=== PATIENT | male | born 1995 | race Caucasian/White ===

== ENCOUNTER 2016-11-01 16:09 | Inpatient (IN) | payer OTHER ==
[~2016-11-01] VITALS: Ht 175.3 cm; Wt 72.6 kg
[~2016-11-01 16:09] MED LIST: CLON0.1T PO; GABA600T2 PO; GABA800T2 PO; LEVO750T21 PO; QUET100T PO
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
[2016-11-01] MEDS ORDERED: HYDR-3651 PO (21:46)
[2016-11-01 22:01] LABS: *AMPHETAMINE, URINE NEGATIVE (NEGATIVE); *BARBITURATE, URINE POSITIVE (NEGATIVE); *CANNABINOID, URINE POSITIVE (NEGATIVE); *COCCAINE, URINE NEGATIVE (NEGATIVE); *OPIATE, URINE POSITIVE (NEGATIVE); *PHENCYCLIDINE SCREEN,URINE NEGATIVE (NEGATIVE)
[2016-11-01 22:30] VITALS: BP 113/67
[2016-11-01] MEDS ORDERED: diphenhydrAMINE 50 MG CAPSULE PO PRN (22:45)
[2016-11-01] MEDS ORDERED: DIAZEPAM 10 MG TABLET PO PRN ×2 (22:45)
[2016-11-01] MEDS ORDERED: ONDANSETRON ODT 4 MG TAB.RAPDIS SL PRN (22:45)
[2016-11-01] MEDS ORDERED: DICYCLOMINE HCL 20 MG TABLET PO PRN (22:45)
[2016-11-01] MEDS ORDERED: LORAZEPAM 2 MG/1 ML VIAL IM PRN (22:45)
[2016-11-01] MEDS ORDERED: MAGNESIUM HYDROXIDE 30 ML LIQUID UDC PO PRN (22:45)
[2016-11-01] MEDS ORDERED: ACETAMINOPHEN 325 MG TABLET PO PRN (22:45)
[2016-11-01] MEDS ORDERED: BUPRENORPHINE HCL 2 MG TAB.SUBL SL PRN (22:45)
[2016-11-01] MEDS ORDERED: MIRALAX 17 GM POWD.PACK PO PRN (22:45)
[2016-11-01] MEDS ORDERED: ONDANSETRON 4 MG/2 ML VIAL IM PRN (22:45)
[2016-11-01] MEDS ORDERED: MAG HYDROX/AL HYDROX/SIMETH 30 ML LIQUID UDC PO PRN (22:45)
[2016-11-01] MEDS ORDERED: THIAMINE HCL 200 MG/2 ML VIAL IM ONE (22:45)
[2016-11-01] MEDS ORDERED: DIAZEPAM 5 MG TABLET PO PRN (22:45)
[2016-11-01] MEDS ORDERED: HYDROXYZINE PAMOATE 25 MG CAPSULE PO PRN (22:45)
[2016-11-01] MEDS ORDERED: LOPERAMIDE HCL 2 MG CAPSULE PO PRN ×2 (22:45)
[2016-11-01] MEDS ORDERED: IBUPROFEN 600 MG TABLET PO PRN (22:45)
[2016-11-01] MEDS ORDERED: DIAZEPAM 10 MG TABLET ONE (22:56)
[2016-11-01] MEDS ORDERED: DIAZEPAM 10 MG TABLET PO SCH (23:00)
--- NOTE | 2016-11-01 23:07 | NUR ---
Thiamine Refused: Patient refuses Thiamine IM. Patient educated on risks and benefits but continued to refuse.
[2016-11-02] VITALS (7 sets, daily range): BP systolic 92–111; BP diastolic 44–72
--- NOTE | 2016-11-02 | NUR ---
COWS/CIWA Deferred: Ordered 00:00 COWS and CIWA assessments are deferred for sleep. No s/s of acute distress noted. All safety precautions are in place. Will continue to monitor. Addendum: 11/02/16 at 0329 by ADRIEL MAGAÑA RN Amended: Links added.
[2016-11-02] MEDS ORDERED: QUET200T PO (02:19)
[2016-11-02] MEDS ORDERED: HYDR-3326 PO (02:19)
[2016-11-02] MEDS ORDERED: GABA800T2 PO (02:19)
--- NOTE | 2016-11-02 04:00 | NUR ---
COWS/CIWA Deferred: Ordered 04:00 COWS and CIWA assessments are deferred for sleep. All safety precautions are in place. Will continue to monitor. Addendum: 11/02/16 at 0544 by ADRIEL MAGAÑA RN Amended: Links added.
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
[2016-11-02] MEDS ORDERED: TUBERCULIN,PURIF.PROT.DERIV. 5 TU/0.1 ML TEST ID ONE (09:00)
[2016-11-02] MEDS ORDERED: MULTIVITAMINS,THERAPEUTIC TABLET PO SCH (09:00)
[2016-11-02] MEDS ORDERED: PNEUMOCOCCAL 23-VAL P-SAC VAC 0.5 ML VIAL IM ONE (09:00)
[2016-11-02] MEDS: MULTIVITAMINS,THERAPEUTIC TABLET PO SCH (09:44)
[2016-11-02] MEDS: THIAMINE HCL 100 MG TABLET PO SCH (09:44)
[2016-11-02] MEDS: BUPRENORPHINE HCL 2 MG TAB.SUBL SL SCH ×4 (09:44→20:54)
[2016-11-02] MEDS: DIAZEPAM 10 MG TABLET PO SCH ×4 (09:44→20:54)
[2016-11-02] MEDS: FOLIC ACID 1 MG TABLET PO SCH (09:44)
[2016-11-02] MEDS: NEOMY/BACITRAC/POLYMI OINT 28.35 GM TUBE TOP SCH ×2 (09:45→16:29)
--- NOTE | 2016-11-02 09:46 | NUR ---
TB TEST TO L F/A Client tolerated well.
[2016-11-02] MEDS: GABAPENTIN 400 MG CAPSULE PO SCH ×3 (09:52→20:54)
[2016-11-02 10:07] LABS: BASOPHILS % (AUTO) 0.5 % (0.0-2.0); EOSINOPHILS # (AUTO) 0.3 K/uL (0.0-0.7); EOSINOPHILS % (AUTO) 3.8 % (0.0-7.0); HEMATOCRIT 37.3 % (36.7-47.1); HEMOGLOBIN 12.8 g/dL (12.5-16.3); LYMPHOCYTES # (AUTO) 3.2 K/uL (20.0-40.0); LYMPHOCYTES % (AUTO) 34.9 % (20.5-51.5); MEAN CORPUSCULAR HEMOGLOBIN 30.8 uug (23.8-33.4); MEAN CORPUSCULAR HGB CONC 34 g/dL (32.5-36.3); MEAN CORPUSCULAR VOLUME 89.6 fL (73.0-96.2); MONOCYTES # (AUTO) 1.1 K/uL (2.0-10.0); MONOCYTES % (AUTO) 11.7 % (0.0-11.0); NEUTROPHILS # (AUTO) 4.6 K/uL (1.8-8.9); NEUTROPHILS % (AUTO) 49.1 % (38.5-71.5); PLATELET COUNT (AUTO) 377 K/uL (152-348); RED BLOOD CELL COUNT(AUTO) 4.16 MIL/uL (4.06-5.63); RED CELL DISTRIBUTION WIDTH 12.3 % (12.1-16.2); WHITE BLOOD COUNT (AUTO) 9.2 K/uL (3.6-10.2)
[2016-11-02 10:17] LABS: ETHANOL < 3 MG/DL (0-0)
[2016-11-02 10:19] LABS: ALANINE AMINOTRANSFERASE 44 U/L (16-63); ALBUMIN 3.2 g/dL (3.4-5.0); ALKALINE PHOSPHATASE 93 U/L (50-136); ASPARTATE AMINOTRANSFERASE 33 U/L (15-37); BILIRUBIN,TOTAL 0.4 mg/dL (0.2-1.0); CALCIUM 8.9 mg/dL (8.5-10.1); CARBON DIOXIDE 29 mmol/L (21-32); CHLORIDE 105 mmol/L (98-107); CREATININE 0.9 mg/dL (0.6-1.3); GFR 105 mL/min (>60); GLUCOSE 91 mg/dL (74-106); MAGNESIUM 2.1 mg/dL (1.8-2.4); POTASSIUM 4.4 mmol/L (3.5-5.1); SODIUM SERUM 139 mmol/L (136-145); TOTAL PROTEIN, SERUM 7.4 g/dL (6.4-8.2); UREA NITROGEN, BLOOD 11 mg/dL (7-18)
[2016-11-02 10:30] LABS: THYROID STIMULATING HORMONE 2.802 mIU/mL (0.358-3.740)
[2016-11-02 10:40] LABS: HIV-1 p24 ANTIGEN NON REACTIVE (NONREACTIVE); HIV-1/2 ANTIBODY NON REACTIVE (NONREACTIVE)
[2016-11-02] MEDS: KETOROLAC TROMETHAMINE 30 MG INJ IM PRN ×2 (12:22→18:19)
--- NOTE | 2016-11-02 12:22 | NUR ---
PRN TORADOL 30MG INJ Client reports pain on R hand, throbbing, he appears irritable and making facial grimace. PRN Toradol 30mg Inj IM to Left Deltoid, will continue to monitor. Call light within reach.
--- NOTE | 2016-11-02 13:22 | NUR ---
Reassessment PRN TORADOL 30MG INJ Client reports pain relief from 8/10 to 1/10, but tolerable. Call light within reach.
--- NOTE | 2016-11-02 18:19 | NUR ---
PRN TORADOL 30MG INJ Client reports pain 8/10 on R hand, throbbing, he presents irritable, guarding site. PRN Toradol 30mg Inj IM to Left Deltoid, will continue to monitor. Call light within reach.
--- NOTE | 2016-11-02 19:19 | NUR ---
Reassessment PRN TORADOL 30MG INJ Client reports pain relief from 8/10 to 1/10, but tolerable. Call light within reach.
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
[2016-11-02] MEDS: QUETIAPINE FUMARATE 100 MG TABLET PO SCH (20:54)
--- NOTE | 2016-11-02 20:55 | NUR ---
PRN Tylenol: Patient complains of 7/10 pain in right arm. Administered Tylenol 650mg PO as ordered. Will continue to monitor.
--- NOTE | 2016-11-02 22:00 | NUR ---
PRN Tylenol Reassessment: Pt states that the pain in his right arm has decreased from 7/10 to 4/10 and is now manageable. PRN Tylenol effective. Will continue to monitor.
[2016-11-03] VITALS: BP 118/64
--- NOTE | 2016-11-03 | NUR ---
COWS/CIWA Deferred: COWS and CIWA assessments are deferred for sleep. No s/s of acute distress noted. All safety precautions are in place. Will continue to monitor. Addendum: 11/03/16 at 0406 by ADRIEL MAGAÑA RN Amended: Links added.
[2016-11-03] MEDS: KETOROLAC TROMETHAMINE 30 MG INJ IM PRN ×3 (00:25→16:48)
--- NOTE | 2016-11-03 00:25 | NUR ---
PRN Toradol: Patient complains of severe pain in right arm. Patient rates pain 9/10. Administered PRN Toradol 30mg IM in right deltoid. Patient tolerated well. Will continue to monitor.
--- NOTE | 2016-11-03 01:30 | NUR ---
PRN Reassessment: Patient reports pain in right arm has decreased to 3/10. PRN Toradol 30mg IM effective. Will continue to monitor.
[2016-11-03 04:00] VITALS: BP 96/47
--- NOTE | 2016-11-03 04:00 | NUR ---
COWS and CIWA Deferred: COWS and CIWA assessments are deferred while patient sleeps. All safety precautions are in place. Will continue to monitor. Addendum: 11/03/16 at 0444 by ADRIEL MAGAÑA RN Amended: Links added.
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
[2016-11-03] MEDS: DIAZEPAM 10 MG TABLET PO SCH ×3 (09:25→20:47)
[2016-11-03] MEDS: GABAPENTIN 400 MG CAPSULE PO SCH (09:25)
[2016-11-03] MEDS: MULTIVITAMINS,THERAPEUTIC TABLET PO SCH (09:25)
[2016-11-03] MEDS: THIAMINE HCL 100 MG TABLET PO SCH (09:25)
[2016-11-03] MEDS: FOLIC ACID 1 MG TABLET PO SCH (09:25)
[2016-11-03] MEDS: BUPRENORPHINE HCL 2 MG TAB.SUBL SL SCH ×3 (09:25→20:47)
[2016-11-03] MEDS: NEOMY/BACITRAC/POLYMI OINT 28.35 GM TUBE TOP SCH ×2 (09:26→16:01)
[2016-11-03 09:30] VITALS: BP 118/68
--- NOTE | 2016-11-03 09:36 | NUR ---
PRN Toradol 30 mg INJ Client complains of severe pain in right arm, pain 9/10. Administered PRN Toradol 30mg IM in right deltoid. Patient tolerated well. Will continue to monitor. Call light within reach.
--- NOTE | 2016-11-03 10:36 | NUR ---
Reassessment PRN TORADOL 30MG INJ Client reports pain relief now 1/10, but tolerable. Call light within reach.
[2016-11-03] MEDS ORDERED: CLONIDINE HCL 0.1 MG TABLET PO ONE (11:45)
[2016-11-03] MEDS ORDERED: DIAZEPAM 10 MG TABLET PO SCH ×2 (12:00)
--- NOTE | 2016-11-03 12:13 | NUR ---
One time dose Clonidine, Valium Client reports chills, diaphoresis, anxiety, irritability, leg restlessness. Clonidine 0.1mg and Valium 10mg PO administered. Will continue to monitor.
[2016-11-03 12:14] VITALS: BP 103/61
[2016-11-03] MEDS ORDERED: DIAZEPAM 10 MG TABLET PO ONE (13:00)
--- NOTE | 2016-11-03 13:13 | NUR ---
Reassessment One time dose Clonidine, Valium Client is in bed, appears calm, He stated "I feel a little bit better." Will continue to monitor.
[2016-11-03 14:06] LABS: HCV AB >11.0 s/co ratio (0.0-0.9); HEPATITIS B CORE AB, IgM Negative (Negative); HEPATITIS B SURFACE AG Negative (Negative)
[2016-11-03] MEDS: DICYCLOMINE HCL 20 MG TABLET PO SCH ×2 (15:56→20:47)
[2016-11-03] MEDS: GABAPENTIN 300 MG CAPSULE PO SCH ×2 (15:56→20:46)
[2016-11-03] MEDS: BACLOFEN 10 MG TABLET PO SCH ×2 (15:56→20:47)
[2016-11-03 16:04] VITALS: BP 107/62
--- NOTE | 2016-11-03 17:48 | NUR ---
Reassessment PRN TORADOL 30MG INJ Client reports pain relief at R hand 0/10. Call light within reach.
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
[2016-11-03 20:16] VITALS: BP 112/61
[2016-11-03] MEDS: QUETIAPINE FUMARATE 100 MG TABLET PO SCH (20:47)
[2016-11-04 00:44] VITALS: BP 108/50
[2016-11-04] MEDS: KETOROLAC TROMETHAMINE 30 MG INJ IM PRN ×3 (04:33→18:51)
--- NOTE | 2016-11-04 04:40 | NUR ---
PRN Toradol Pt c/o Right arm pain 03/17 and requested for PRN Toradol. Medication given and tolerated well. Will reassess within 1 HR. Will continue to monitor.
[2016-11-04 04:44] VITALS: BP 104/54
--- NOTE | 2016-11-04 05:37 | NUR ---
PRN Toradol Reassessment Medication effective. Pt states that pain level reduced to 5/10. No s/s of ASE/distress noted at this time. Respirations even and unlabored. Will continue to monitor.
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
[2016-11-04] MEDS: THIAMINE HCL 100 MG TABLET PO SCH (08:13)
[2016-11-04] MEDS: MULTIVITAMINS,THERAPEUTIC TABLET PO SCH (08:13)
[2016-11-04] MEDS: BACLOFEN 10 MG TABLET PO SCH ×2 (08:13→14:51)
[2016-11-04] MEDS: FOLIC ACID 1 MG TABLET PO SCH (08:13)
[2016-11-04] MEDS: DICYCLOMINE HCL 20 MG TABLET PO SCH ×3 (08:13→20:27)
[2016-11-04] MEDS: GABAPENTIN 300 MG CAPSULE PO SCH ×3 (08:13→20:27)
[2016-11-04] MEDS: DIAZEPAM 5 MG TABLET PO SCH ×4 (08:13→20:27)
[2016-11-04] MEDS: NEOMY/BACITRAC/POLYMI OINT 28.35 GM TUBE TOP SCH ×2 (08:18→16:04)
[2016-11-04 08:20] VITALS: BP 109/61
[2016-11-04] MEDS: CLONIDINE HCL 0.1 MG TABLET PO PRN (08:25)
--- NOTE | 2016-11-04 08:25 | NUR ---
PRN Clonidine 0.1mg Clonidine 0.1mg PO given for anxiety, irritability and chills. Will continue to monitor.
[2016-11-04] MEDS ORDERED: BUPRENORPHINE HCL 2 MG TAB.SUBL SL SCH (09:00)
--- NOTE | 2016-11-04 09:25 | NUR ---
Reassessment PRN Clonidine 0.1mg Client stated, "I feel a little bit better, less anxious, thank you." Clonidine 0.1mg effective.
--- NOTE | 2016-11-04 09:46 | NUR ---
ZERO INDURATION NOTED @ TB TEST SITE ON L F/A.
--- NOTE | 2016-11-04 11:10 | NUR ---
PRN Toradol 30 mg INJ Client complains of severe pain in right arm, pain 8/10. BP 128/62, administered PRN Toradol 30mg IM in L deltoid. Patient tolerated well. Will continue to monitor. Call light within reach.
[2016-11-04 12:00] VITALS: BP 100/61
[2016-11-04] MEDS ORDERED: DIAZEPAM 5 MG TABLET PO ONE (12:00)
--- NOTE | 2016-11-04 12:10 | NUR ---
Reassessment PRN TORADOL 30MG INJ Client reports pain relief now 0/10. Call light within reach.
[2016-11-04] MEDS: BUPRENORPHINE HCL 2 MG TAB.SUBL SL SCH ×3 (15:00→20:28)
--- NOTE | 2016-11-04 15:00 | NUR ---
CLIENT TRIED TO CHEEK MEDICATION, PER DR. SUERO DO NOT ADMINISTER DOSE. CHARGE NURSE MADE AWARE.
[2016-11-04 16:00] VITALS: BP 111/63
--- NOTE | 2016-11-04 18:51 | NUR ---
PRN Toradol 30 mg INJ Client complains of severe pain in right arm, pain 9/10. BP 128/62, administered PRN Toradol 30mg IM in R deltoid. Patient tolerated well. Will continue to monitor. Call light within reach.
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
[2016-11-04 20:00] VITALS: BP 120/67
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
[2016-11-04] MEDS: QUETIAPINE FUMARATE 100 MG TABLET PO SCH (20:27)
--- NOTE | 2016-11-04 22:12 | NUR ---
RN note PRN Vistaril Pt noted to have increasing anxiety. Administered Vistaril 25 mg PO as ordered. Will reassess.
--- NOTE | 2016-11-04 23:15 | NUR ---
RN note reassess Pt verbalized decreased level of anxiety. No SOB nor facial grimacing noted. Will continue to monitor pt.
[2016-11-05] VITALS: BP 108/55
[2016-11-05 04:00] VITALS: BP 112/57
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
[2016-11-05 08:00] VITALS: BP 117/65
[2016-11-05] MEDS: MULTIVITAMINS,THERAPEUTIC TABLET PO SCH (08:33)
[2016-11-05] MEDS: GABAPENTIN 300 MG CAPSULE PO SCH ×3 (08:33→20:06)
[2016-11-05] MEDS: CLONIDINE HCL 0.1 MG TABLET PO PRN ×2 (08:34→20:25)
[2016-11-05] MEDS: THIAMINE HCL 100 MG TABLET PO SCH (08:34)
[2016-11-05] MEDS: BUPRENORPHINE HCL 2 MG TAB.SUBL SL SCH ×3 (08:34→20:09)
[2016-11-05] MEDS: FOLIC ACID 1 MG TABLET PO SCH (08:34)
[2016-11-05] MEDS: DIAZEPAM 5 MG TABLET PO SCH ×3 (08:34→20:09)
[2016-11-05] MEDS: DICYCLOMINE HCL 20 MG TABLET PO SCH ×3 (08:34→20:07)
--- NOTE | 2016-11-05 08:34 | NUR ---
PRN Medication Client complains of pain in right arm, pain 8/10 as well as anxiety pt presented with sweats, agitation and slight tremors administered PRN Toradol 30mg IM in Left deltoid and Clonidine 0.1mg pts BP: 117/65mmHg. Patient tolerated well. Will continue to monitor and provide care..
[2016-11-05] MEDS: NEOMY/BACITRAC/POLYMI OINT 28.35 GM TUBE TOP SCH ×2 (08:35→17:00)
[2016-11-05] MEDS: KETOROLAC TROMETHAMINE 30 MG INJ IM PRN ×2 (08:35→17:29)
--- NOTE | 2016-11-05 09:35 | NUR ---
PRN REASSESSMENT Medication partially effective, pt reported a decrease in pain to 5/10 and stated his anxiety has decreased to a tolerable state. All needs met, all safety measures in place will continue to monitor.
[2016-11-05] MEDS ORDERED: DIAZEPAM 10 MG TABLET PO ONE (11:00)
[2016-11-05] MEDS ORDERED: BUPRENORPHINE HCL 2 MG TAB.SUBL SL ONE (11:00)
[2016-11-05 12:00] VITALS: BP 112/67
[2016-11-05] MEDS ORDERED: HYDROXYZINE PAMOATE 25 MG CAPSULE PO PRN (13:45)
[2016-11-05] MEDS: BACLOFEN 10 MG TABLET PO SCH ×2 (14:38→20:07)
[2016-11-05 16:00] VITALS: BP 126/76
--- NOTE | 2016-11-05 17:29 | NUR ---
PRN Medication Client complains of pain in right arm, pain 6/10 PRN Toradol 30mg IM in Left deltoid administered. Will continue to monitor and provide care.
--- NOTE | 2016-11-05 18:27 | NUR ---
PRN REASSESSMENT Medication effective, pt reported a decrease in pain to 3/10 and stated his anxiety has decreased to a tolerable state. All needs met, all safety measures in place will continue to monitor.
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
[2016-11-05 20:00] VITALS: BP 117/67
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
[2016-11-05] MEDS: QUETIAPINE FUMARATE 100 MG TABLET PO SCH (20:07)
[2016-11-05] MEDS: METHOCARBAMOL 750 MG TABLET PO PRN (20:24)
--- NOTE | 2016-11-05 20:25 | NUR ---
PRN Administration Pt is anxious, agitated, irritable, unable to sit still, skin flushed/clammy. Clonidine 0.1mg PRN administered. Robaxin 750mg PRN administered for body aches. Safety measures in place. Will continue to monitor.
--- NOTE | 2016-11-05 21:25 | NUR ---
PRN Reassessment Upon reassessment, pt reports relief of body aches, pt is resting in bed, watching tv. Needs met, safety measures in place. Will continue to monitor.
[2016-11-06] VITALS: BP 101/56
[2016-11-06] MEDS: KETOROLAC TROMETHAMINE 30 MG INJ IM PRN ×3 (00:19→21:57)
--- NOTE | 2016-11-06 00:19 | NUR ---
PRN Administration 0019 Pt reported severe pain rated 8/10 in right arm, requested relief. Toradol 30mg/1ml injection administered. Safety measures in place. Will continue to monitor.
--- NOTE | 2016-11-06 01:19 | NUR ---
PRN Reassessment Upon reassessment, pt is sleeping, respirations even and unlabored, no s/s of acute distress noted. Safety measures in place. will continue to monitor.
[2016-11-06 04:00] VITALS: BP 108/63
--- NOTE | 2016-11-06 04:00 | NUR ---
Vital Signs BP 108/63, pulse 69, respirations 16, SpO2 97%, temp 97.9, no reports of pain CIWA/COWS deferred d/t pt sleeping, to assess while pt is awake as ordered. Safety measures in place. Will continue to monitor.
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
--- NOTE | 2016-11-06 07:10 | NUR ---
Start of Shift Endorsement received from nightshift nurse. Pt is a 21 y/o male admitted for Xanax, Alcohol, Heroin and Dilaudid dependence. Pt has been placed on a 5 day Ativan and 5 day Subutex taper. Pt received PRN Robaxin, Clonidine and Toradol for withdrawal symptoms. Pt is moderately withdrawing at this time AEB COWS 4, CIWA 6 at midnight. Pt reports Hx of seizures related to benzo withdrawals.PT is alert and oriented x4.Pt is in STABLE condition at this time. Remains compliant with medication and diet regimen. All needs have been met, All safety measures in place per hospital policy. Bed in lowest position, side rails up x2, call-light within reach. Will continue to monitor
[2016-11-06 08:00] VITALS: BP 105/49
[2016-11-06] MEDS: GABAPENTIN 300 MG CAPSULE PO SCH ×3 (08:12→21:46)
[2016-11-06] MEDS: THIAMINE HCL 100 MG TABLET PO SCH (08:12)
[2016-11-06] MEDS: FOLIC ACID 1 MG TABLET PO SCH (08:12)
[2016-11-06] MEDS: BUPRENORPHINE HCL 2 MG TAB.SUBL SL SCH ×2 (08:12→21:46)
[2016-11-06] MEDS: MULTIVITAMINS,THERAPEUTIC TABLET PO SCH (08:13)
[2016-11-06] MEDS: DIAZEPAM 5 MG TABLET PO SCH ×2 (08:13→21:46)
[2016-11-06] MEDS: DICYCLOMINE HCL 20 MG TABLET PO SCH ×3 (08:13→21:46)
[2016-11-06] MEDS: BACLOFEN 10 MG TABLET PO SCH ×3 (08:13→21:46)
[2016-11-06] MEDS: CLONIDINE HCL 0.1 MG TABLET PO PRN (08:24)
[2016-11-06] MEDS: NEOMY/BACITRAC/POLYMI OINT 28.35 GM TUBE TOP SCH ×2 (08:27→17:00)
[2016-11-06 12:00] VITALS: BP 108/58
[2016-11-06] MEDS ORDERED: DIAZEPAM 5 MG TABLET PO ONE ×2 (12:45→13:15)
[2016-11-06] MEDS ORDERED: QUETIAPINE FUMARATE 100 MG TABLET PO ONE (13:00)
[2016-11-06] MEDS ORDERED: QUETIAPINE FUMARATE 25 MG TABLET PO ONE (13:15)
[2016-11-06] MEDS ORDERED: BUPRENORPHINE HCL 2 MG TAB.SUBL SL SCH (15:00)
[2016-11-06] MEDS ORDERED: DIAZEPAM 5 MG TABLET PO SCH (15:00)
--- NOTE | 2016-11-06 15:09 | NUR ---
Therapist encouraged client to attend group.
[2016-11-06 16:00] VITALS: BP 100/49
--- NOTE | 2016-11-06 19:08 | NUR ---
End of Shift Endorsement given to nightshift nurse. Pt is a 21 y/o male admitted for Xanax, Alcohol, Heroin and Dilaudid dependence. Pt has been placed on a 5 day Ativan and 5 day Subutex taper. Pt received one time dose of Valium x2 and a one time dose of Subutex per Dr. Aguilar, Pt's CIWA 13, COWS 12 at the time. Pt also received one time dose of Seroquel 12.5mg. Pt's presents with med seeking behavior and expressed open anger when the medications he wanted were delayed or denied. Educated pt on s/e of medications and encouraged pt to learn alternate methods of coping with anxiety and stress. Pt participated in groups and activities. Pt is moderately withdrawing at this time AEB COWS 4, CIWA 7. Intake: 2350ml, Void x4, BM x1. Pt reports Hx of seizures related to benzo withdrawals.PT is alert and oriented x4.Pt is in STABLE condition at this time. Remains compliant with medication and diet regimen. All needs have been met, All safety measures in place per hospital policy. Bed in lowest position, side rails up x2, call-light within reach. Will continue to monitor
[2016-11-06 20:35] VITALS: BP 112/62
[2016-11-06] MEDS: QUETIAPINE FUMARATE 100 MG TABLET PO SCH (21:46)
--- NOTE | 2016-11-06 21:57 | NUR ---
PRN Toradol Pt c/o Right Arm pain 02/14 and requested for PRN Toradol. Medication given and tolerated well. Will reassess within 1 HR. Will continue to monitor.
--- NOTE | 2016-11-06 22:50 | NUR ---
PRN Toradol Reassessment Medication effective. Pt noted with pain 5/10. No s/s of ASE/distress noted at this time. Respirations even and unlabored. Will continue to monitor.
[2016-11-07 00:19] VITALS: BP 94/40
[2016-11-07 04:17] VITALS: BP 118/51
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
[2016-11-07 08:00] VITALS: BP 114/63
[2016-11-07] MEDS: DICYCLOMINE HCL 20 MG TABLET PO SCH ×3 (08:18→20:28)
[2016-11-07] MEDS: FOLIC ACID 1 MG TABLET PO SCH (08:18)
[2016-11-07] MEDS: BACLOFEN 10 MG TABLET PO SCH ×2 (08:18→14:48)
[2016-11-07] MEDS: QUETIAPINE FUMARATE 25 MG TABLET PO SCH (08:18)
[2016-11-07] MEDS: MULTIVITAMINS,THERAPEUTIC TABLET PO SCH (08:19)
[2016-11-07] MEDS: GABAPENTIN 300 MG CAPSULE PO SCH ×4 (08:19→20:28)
[2016-11-07] MEDS: THIAMINE HCL 100 MG TABLET PO SCH (08:19)
[2016-11-07] MEDS: NEOMY/BACITRAC/POLYMI OINT 28.35 GM TUBE TOP SCH ×2 (08:19→16:21)
[2016-11-07] MEDS ORDERED: BUPRENORPHINE HCL 2 MG TAB.SUBL SL SCH (09:00)
[2016-11-07] MEDS ORDERED: DIAZEPAM 5 MG TABLET PO SCH (09:00)
[2016-11-07 12:00] VITALS: BP 109/57
[2016-11-07 15:03] LABS: *AMPHETAMINE, URINE NEGATIVE (NEGATIVE); *BARBITURATE, URINE NEGATIVE (NEGATIVE); *CANNABINOID, URINE NEGATIVE (NEGATIVE); *COCCAINE, URINE NEGATIVE (NEGATIVE); *OPIATE, URINE NEGATIVE (NEGATIVE); *PHENCYCLIDINE SCREEN,URINE NEGATIVE (NEGATIVE)
[2016-11-07 16:00] VITALS: BP 95/55
[2016-11-07] MEDS ORDERED: KETOROLAC TROMETHAMINE 30 MG INJ IM PRN (16:00)
[2016-11-07] MEDS: METHOCARBAMOL 750 MG TABLET PO PRN (16:19)
--- NOTE | 2016-11-07 16:21 | NUR ---
PRN ROBAXIN/TORADOL Pt c/o Right Arm pain 8/10 and Muscle spasms requested for PRN Toradol/Robaxin. Medication given as ordered and tolerated well. Will continue to monitor.
[2016-11-07] MEDS ORDERED: QUETIAPINE FUMARATE 25 MG TABLET PO PRN (16:30)
--- NOTE | 2016-11-07 16:48 | NUR ---
PRN SEROQUEL Pt c/o anxiety, non pharmacological intervention ineffective. PRN Seroquel 25mg Po 1 tab given as ordered. Will cont to monitor and reassess the pt.
--- NOTE | 2016-11-07 17:21 | NUR ---
TORADOL/ROBAXIN REASSESSMENT Pt reported medications effective. Per pt pain level decreased to 4/10. No s/s of adverse reaction noted no distress noted.
--- NOTE | 2016-11-07 17:48 | NUR ---
REASSESSMENT Pt reported medications effective. Anxiety subside. No s/s of adverse reaction noted no distress noted.
[2016-11-07] MEDS ORDERED: BACLOFEN 10 MG TABLET PO PRN (18:00)
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
[2016-11-07 20:22] VITALS: BP 101/51
[2016-11-07] MEDS: QUETIAPINE FUMARATE 100 MG TABLET PO SCH (20:28)
[2016-11-08 00:14] VITALS: BP 92/55
[2016-11-08 04:35] VITALS: BP 126/71
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
[2016-11-08 08:00] VITALS: BP 123/60
--- NOTE | 2016-11-08 08:00 | NUR ---
Pain assessment Pt reported a pain level of 6/10 in his right wrist to SCHEDULER during routine VS. Pt does not want any pain medication at this time. Will continue to monitor pt. All other needs addressed. Addendum: 11/08/16 at 0840 by SAJAN PAZ RN Amended: Links added.
[2016-11-08] MEDS ORDERED: DICY20TA28 PO (08:48)
[2016-11-08] MEDS ORDERED: Baclofen PO (08:48)
[2016-11-08] MEDS ORDERED: QUET25TA PO (08:48)
[2016-11-08] MEDS ORDERED: Ibuprofen PO (08:48)
[2016-11-08] MEDS ORDERED: HYDR-3895 PO (08:48)
[2016-11-08] MEDS ORDERED: Gabapentin PO (08:48)
[2016-11-08] MEDS: MULTIVITAMINS,THERAPEUTIC TABLET PO SCH (09:15)
[2016-11-08] MEDS: NEOMY/BACITRAC/POLYMI OINT 28.35 GM TUBE TOP SCH (09:15)
[2016-11-08] MEDS: QUETIAPINE FUMARATE 25 MG TABLET PO SCH (09:15)
[2016-11-08] MEDS: GABAPENTIN 300 MG CAPSULE PO SCH (09:15)
[2016-11-08] MEDS: FOLIC ACID 1 MG TABLET PO SCH (09:15)
[2016-11-08] MEDS: DICYCLOMINE HCL 20 MG TABLET PO SCH (09:15)
[2016-11-08] MEDS: THIAMINE HCL 100 MG TABLET PO SCH (09:15)
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
[2016-11-12 06:06] LABS: *AMOBARBITAL Negative (Cutoff=200); *BENZODIAZEPINES Positive (.); *BUTALBITAL Negative (Cutoff=200); *CANNABINOID (THC) Positive (.); *CODEINE Negative (Cutoff=300); *HYDROMORPHONE Positive (.); *NORDIAZEPAM Negative (Cutoff=300); *OPIATES Positive ng/mL (Cutoff=300); *OXAZEPAM Positive (.); *PENTOBARBITAL Negative (Cutoff=200); *PHENOBARBITAL Positive (.); *SECOBARBITAL Negative (Cutoff=200)
== END 2016-11-08 10:00 | disposition other institution (70) | DRG 895 ==
LOC: SRC 20:59
PROVIDERS: ADMIT Internal Medicine; ATTEND Internal Medicine
PROC: HZ2ZZZZ Detoxification Services for Substance Abuse Treatment (ICD-10-PCS; principal; 2016-11-01)
PROC: HZ41ZZZ Group Counseling for Substance Abuse Treatment, Behavioral (ICD-10-PCS; 2016-11-02)
PROC: HZ31ZZZ Individual Counseling for Substance Abuse Treatment, Behavioral (ICD-10-PCS; 2016-11-02)
DX: F11.23 Opioid dependence with withdrawal (principal); F10.239 Alcohol dependence with withdrawal, unspecified; F15.23 Other stimulant dependence with withdrawal; Y90.9 Presence of alcohol in blood, level not specified; Z59.0 Homelessness; S61.401D Unspecified open wound of right hand, subsequent encounter; X95 Assault by other and unspecified firearm and gun discharge; G47.00 Insomnia, unspecified; B19.20 Unspecified viral hepatitis C without hepatic coma; F17.210 Nicotine dependence, cigarettes, uncomplicated; S01.81XD Laceration without foreign body of other part of head, subsequent encounter; Y08.02XD Assault by strike by baseball bat, subsequent encounter; F41.9 Anxiety disorder, unspecified; F13.230 Sedative, hypnotic or anxiolytic dependence with withdrawal, uncomplicated
CPT/HCPCS: 36415; 70030-TC; 80307; 80345; 80346; 80349; 80361; 83735; 84443; 85025; 86592; 86705; 86803; 87340; 87806; 90732; G6040-TC; J1885

== ENCOUNTER 2017-02-11 09:19 | Inpatient (IN) | payer OTHER ==
[~2017-02-11] VITALS: Ht 172.7 cm; Wt 64.4 kg
[~2017-02-11 09:19] MED LIST changes: +Baclofen PO; -CLON0.1T PO; +DICY20TA28 PO; -GABA600T2 PO; -GABA800T2 PO; +Gabapentin PO; +HYDR-3895 PO; +Ibuprofen PO; -LEVO750T21 PO; +QUET25TA PO
[2017-02-11 12:15] VITALS: BP 130/70
--- NOTE | 2017-02-11 12:15 | NUR ---
INTAKE ASSESSMENT Received patient in intake. He is AOX4, stable, and ambulatory. Vital signs WNL. Patient reports NKA. Patient has seizure hx last seizure 1 month ago. Patient did not bring any medication with him. Explained unit protocols and patient verbalized understanding. Will admit patient upon admission to third floor.
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
[2017-02-11] MEDS ORDERED: MIRALAX 17 GM POWD.PACK PO PRN (12:45)
[2017-02-11] MEDS ORDERED: DIAZEPAM 10 MG TABLET PO PRN ×3 (12:45→13:00)
[2017-02-11] MEDS ORDERED: diphenhydrAMINE 50 MG CAPSULE PO PRN (12:45)
[2017-02-11] MEDS ORDERED: IBUPROFEN 600 MG TABLET PO PRN (12:45)
[2017-02-11] MEDS ORDERED: THIAMINE HCL 200 MG/2 ML VIAL IM ONE (12:45)
[2017-02-11] MEDS ORDERED: DICYCLOMINE HCL 20 MG TABLET PO PRN (12:45)
[2017-02-11] MEDS ORDERED: LOPERAMIDE HCL 2 MG CAPSULE PO PRN ×2 (12:45)
[2017-02-11] MEDS ORDERED: DIAZEPAM 5 MG TABLET PO PRN ×2 (12:45→17:00)
[2017-02-11] MEDS ORDERED: LORAZEPAM 2 MG/1 ML VIAL IM PRN (12:45)
[2017-02-11] MEDS ORDERED: MAGNESIUM HYDROXIDE 30 ML LIQUID UDC PO PRN (12:45)
[2017-02-11] MEDS ORDERED: MAG HYDROX/AL HYDROX/SIMETH 30 ML LIQUID UDC PO PRN (12:45)
[2017-02-11] MEDS ORDERED: ONDANSETRON 4 MG/2 ML VIAL IM PRN (12:45)
[2017-02-11] MEDS ORDERED: ONDANSETRON ODT 4 MG TAB.RAPDIS SL PRN (12:45)
[2017-02-11] MEDS ORDERED: GABAPENTIN 300 MG CAPSULE PO SCH (12:45)
[2017-02-11] MEDS ORDERED: ACETAMINOPHEN 325 MG TABLET PO PRN (12:45)
[2017-02-11] MEDS ORDERED: BUPRENORPHINE HCL 2 MG TAB.SUBL SL PRN (13:00)
[2017-02-11 13:19] LABS: *AMPHETAMINE, URINE POSITIVE (NEGATIVE); *BARBITURATE, URINE POSITIVE (NEGATIVE); *CANNABINOID, URINE NEGATIVE (NEGATIVE); *COCCAINE, URINE NEGATIVE (NEGATIVE); *OPIATE, URINE POSITIVE (NEGATIVE); *PHENCYCLIDINE SCREEN,URINE NEGATIVE (NEGATIVE)
[2017-02-11 13:39] LABS: BASOPHILS # (AUTO) 0.1 K/uL (0.0-8.0); BASOPHILS % (AUTO) 0.7 % (0.0-2.0); EOSINOPHILS # (AUTO) 0.2 K/uL (0.0-0.7); EOSINOPHILS % (AUTO) 1.8 % (0.0-7.0); LYMPHOCYTES # (AUTO) 2.5 K/UL (0.8-4.8); LYMPHOCYTES % (AUTO) 19.8 % (20.5-51.5); MEAN CORPUSCULAR HEMOGLOBIN 29.2 UUG (27.0-31.0); MEAN CORPUSCULAR HGB CONC 33 g/dL (32.0-37.0); MEAN CORPUSCULAR VOLUME 87.5 FL (82.0-92.0); MONOCYTES # (AUTO) 0.9 K/UL (0.1-1.30); MONOCYTES % (AUTO) 7.4 % (0.0-11.0); NEUTROPHILS # (AUTO) 8.8 K/UL (1.8-8.9); NEUTROPHILS % (AUTO) 70.3 % (38.5-71.5); PLATELET COUNT (AUTO) 321 K/UL (150-450); RED BLOOD CELL COUNT(AUTO) 4.46 MIL/UL (4.7-6.1); WHITE BLOOD COUNT (AUTO) 12.5 K/UL (4.0-11.2)
[2017-02-11] MEDS: CLONIDINE HCL 0.1 MG TABLET PO PRN (13:42)
--- NOTE | 2017-02-11 13:42 | NUR ---
CLONIDINE REASSESSMENT Pt reported medication effective. Feeling better. Will cont to monitor.
--- NOTE | 2017-02-11 13:42 | NUR ---
PRN CLONIDINE Pt c/o of anxiety, agitation, chills. Administered PRN Clonidine 0.1mg as ordered. Will cont to monitor and reassess.
[2017-02-11] MEDS ORDERED: DIAZEPAM 10 MG TABLET PO ONE ×2 (13:45→16:30)
--- NOTE | 2017-02-11 13:47 | NUR ---
VALIUM x1 DOSE Pt reported increased in anxiety, sweats, tremors, agitation, HR-112, CIWA score noted-16. MD notified New order to give 20mg x1 dose of Valium now. Administered medication as ordered. Will cont to monitor and reassess.
[2017-02-11 13:55] LABS: ALANINE AMINOTRANSFERASE 42 U/L (16-63); ALKALINE PHOSPHATASE 127 U/L (50-136); AMYLASE 28 U/L (25-115); ASPARTATE AMINOTRANSFERASE 44 U/L (15-37); BILIRUBIN,TOTAL 0.5 mg/dL (0.2-1.0); CARBON DIOXIDE 30 mmol/L (21-32); CHLORIDE 100 mmol/L (98-107); CREATININE 0.9 mg/dL (0.6-1.3); ETHANOL < 3 MG/DL (0-0); GLUCOSE 117 mg/dL (74-106); LIPASE 83 U/L (73-393); MAGNESIUM 1.8 mg/dL (1.8-2.4); POTASSIUM 4.2 mmol/L (3.5-5.1); TOTAL PROTEIN, SERUM 8.3 g/dL (6.4-8.2); UREA NITROGEN, BLOOD 10 mg/dL (7-18)
[2017-02-11] MEDS ORDERED: HYDROXYZINE PAMOATE 25 MG CAPSULE PO PRN (14:00)
[2017-02-11] MEDS: GABAPENTIN 400 MG CAPSULE PO SCH ×2 (14:30→20:21)
--- NOTE | 2017-02-11 14:47 | NUR ---
VALIUM REASSESSMENT Pt reported medication effective feeling less agitated, anxious, CIWA score noted 12. Will cont to monitor.
[2017-02-11 16:00] VITALS: BP 128/76
--- NOTE | 2017-02-11 16:38 | NUR ---
VALIUM x1 DOSE Pt reported increased in anxiety, sweats, tremors, agitation, difficulty to sit still. HR-115, CIWA score noted-13. MD notified New order to give 20mg x1 dose of Valium now. Administered medication as ordered. Will cont to monitor and reassess.
[2017-02-11] MEDS ORDERED: GABAPENTIN NEURONTIN PO SCH (17:00)
[2017-02-11] MEDS ORDERED: DIAZEPAM 5 MG TABLET PO SCH ×2 (17:00→21:00)
--- NOTE | 2017-02-11 17:38 | NUR ---
VALIUM REASSESSMENT Pt reported medication effective feeling less agitated, anxious, CIWA score noted 9. Will cont to monitor.
--- NOTE | 2017-02-11 19:07 | NUR ---
START OF SHIFT NOTE: Patient endorsed by day shift nurse in stable condition. Report received. Patient is a 21 year old male admitted to [facility] on 02/11/2017 for medically supervised withdrawal from Benzodiazepines, ETOH, Opioid, and Methamphetamine, continue 5 Day Valium since 02/11/2017 with tolerated well without ASE. Patient remained compliant with treatment, medications and diet regime. Patient reports NKA. Patient is on Full Code, Regular Diet, Fall and Seizures Precautions. PMH: Anxiety, Depression, Seizures Hx "one month ago r/t withdrawal", Insomnia. Substance abuse, Tobacco dependence. Substance Use: ETOH: " Vodka 750mL/d for 5 months and last use 750 ml on 02/10/17 ". Xanax: "10-20 mg PO daily for 5 months with the last use 12 mg on 02/10/17". Heroin IV: 2 grams every day during last 5 months. Last used 2 grams on 02/11/17", Methamphetamine: "0.5g via IV injection every day for 5 years w/ the last use on 02/11/17". Phenobarbital PO: "64.8 mg during last 3 months. Last use on 02/10/17". Smoker of 1 pack per day. He has been to a treatment programs multiple times. Last it was on "[facility]" on in the past, 30 day in pt program w/ DC to [facility], with reported relapse soon after discharge. Upon endorsement, patient is in the room. Assessment done. Patient is alert and oriented x4. Speech is clear and soft. COWS 7, CIWA 9. Patient presented with mild anxiety, agitation, nervousness, diaphoresis, tremors, restlessness, body aches, insomnia and fatigue. Patient denies SI/HI. VSWNL. Respirations unlabored and even. Patient denies SOB and chest pain. Lungs Sounds are clear bilaterally. Bowel Sounds active in all x4 quadrants. PERRLA, brisk capillary refill, right of way appraiser equal and strong. Encourage fluids as tolerated. Encourage to attend activities group. All needs met. Safety measures on place. Call light within reach, bed in lowest position and locked, padded rails up bilaterally rails up bilaterally. Will continue to monitor closely.
--- NOTE | 2017-02-11 19:07 | NUR ---
END OF SHIFT NOTE Endorsed pt to night nurse. Pt is admitted for Opioid/Meth/ETOH/Benzo dependence. Pt presented anxious, agitated, difficulty sit still, Tremors, hot and cold flashes. Pt were given x1 dose of Valium 20mg x2 effective. Patient encouraged to attend group therapies/sessions to learn new coping skills to prevent relapse, patient denies SI/HI. Fall and seizure precautions observed at all times, all needs met and rendered, Safety measures in place. Call light kept within reach. Patient endorsed to shiftman nurse, all pertinent information discussed. Patient endorsed to shiftman nurse in stable condition.
[2017-02-11 20:00] VITALS: BP 117/78
[2017-02-11] MEDS: MAGNESIUM CHLORIDE 64 MG TABLET.SA PO SCH (20:20)
[2017-02-11] MEDS: QUETIAPINE FUMARATE 100 MG TABLET PO SCH (20:21)
[2017-02-11] MEDS ORDERED: QUETIAPINE FUMARATE 100 MG TABLET PO SCH (21:00)
--- NOTE | 2017-02-11 21:41 | NUR ---
PRN VALIUM 20 MG PO ADMINISTRATED Patient reported of increased in anxiety, agitation, nervousness, sweats, tremors, and tachycardia. Patient assessed. HR:111. CIWA score noted-17. MD aware. Patient were given of PRN Valium 20mg for CIWA 17 as ordered. All needs met. Safety measures on place. Call light within reach, bed in lowest position and locked, padded rails up bilaterally rails up bilaterally. Will continue to monitor closely.
--- NOTE | 2017-02-11 22:41 | NUR ---
RE-ASSESSMENT Due to re-assessment, patient reported that feeling less agitated and anxious. CIWA score decreased from 17 to 10. Ordered PRN Valium PO was effective. All needs met. Safety measures on place. Call light within reach, bed in lowest position and locked, padded rails up bilaterally rails up bilaterally. Will continue to monitor closely.
[2017-02-12] VITALS: BP 112/70
[2017-02-12 04:00] VITALS: BP 96/52
--- NOTE | 2017-02-12 06:58 | NUR ---
END OF SHIFT NOTE: Patient endorsed to day shift nurse in stable condition. Report given. Patient is a 21 year old male admitted to [facility] on 02/11/2017 for medically supervised withdrawal from Benzodiazepines, ETOH, Opioid, and Methamphetamine, continue 5 Day Valium since 02/11/2017 with tolerated well without ASE. Patient remained compliant with treatment, medications and diet regime. Patient reports NKA. Patient is on Full Code, Regular Diet, Fall and Seizures Precautions. Last assessment done at 0400: COWS 5, CIWA 5. Patient presented with mild anxiety, agitation, nervousness, diaphoresis, tremors, restlessness, body aches, insomnia and fatigue. Patient denies SI/HI. . During security shift manager patient presented with anxiety, agitation, nervousness, diaphoresis, tremors that can be felt, restless legs, insomnia and fatigue. Patient denies SI/HI. VS at 0400: T: 97.2; BP: 96/52; HR: 56; RR:14; O2 SAT: 98%, pain level "0/10". Respirations unlabored and even. Skin is intact, warm and dry to touch. Encouraged fluids as tolerated. Encourage to attend group activities. Patient were given of PRN Valium 20mg for CIWA 17 as ordered and was effective. Patient remained compliant with treatment, and medications. Patient slept 5 hours 25 min, intake 500 ml, voided x1. All needs met. Safety measures on place. Call light within reach, bed in lowest position and locked, padded rails up bilaterally.
--- NOTE | 2017-02-12 07:40 | NUR ---
START OF SHIFT NOTE Received report from night nurse, 21 year old male admitted for Opioid/Meth/ETOH/Benzo dependence. Pt reported PMH of anxiety, seizure, insomnia. Per endorsement pt received PRN Valium 20mg effective, last COWS-5, CIWA-5, Slept for 4 hours. Received pt asleep responsive to verbal and tactile stimuli. Breathing normal no SOB noted, Skin intact warm and dry tot touch. Safety measures in place. Call light kept within reach. Will cont to monitor.
[2017-02-12 08:00] VITALS: BP 109/66
[2017-02-12] MEDS ORDERED: 5 DAY TAPER VALIUM-SERENITY PROTOCOL PO PRN (09:00)
[2017-02-12] MEDS ORDERED: 5 DAY TAPER BUPRENORPHINE -SERENITY PROTOCOL SL PRN (09:00)
[2017-02-12] MEDS ORDERED: TUBERCULIN,PURIF.PROT.DERIV. 5 TU/0.1 ML TEST ID ONE (09:00)
[2017-02-12] MEDS: MULTIVITAMINS,THERAPEUTIC TABLET PO SCH (09:24)
[2017-02-12] MEDS: DOCUSATE SODIUM 250 MG CAPSULE PO SCH (09:25)
[2017-02-12] MEDS: THIAMINE HCL 100 MG TABLET PO SCH (09:25)
[2017-02-12] MEDS: FOLIC ACID 1 MG TABLET PO SCH (09:25)
[2017-02-12] MEDS: GABAPENTIN 400 MG CAPSULE PO SCH ×3 (09:25→20:46)
[2017-02-12] MEDS: MAGNESIUM CHLORIDE 64 MG TABLET.SA PO SCH ×2 (09:25→20:46)
[2017-02-12] MEDS: BUPRENORPHINE HCL 2 MG TAB.SUBL SL SCH ×4 (09:26→20:45)
[2017-02-12] MEDS: DIAZEPAM 10 MG TABLET PO SCH ×4 (09:26→20:45)
--- NOTE | 2017-02-12 09:55 | NUR ---
CARE ENDORSED All pertinent information given and care endorsed to nurse in charge.
--- NOTE | 2017-02-12 09:56 | NUR ---
Received Patient Executive Casino Host received report on pt and assumed care of pt. Pt is a 21 year old male admitted for poly-substance detoxification. Pt is irritable and presents with an anxious affect and angry mood. Will continue to monitor, support and encourage according to plan of care.
[2017-02-12] MEDS ORDERED: DIAZEPAM 10 MG TABLET PO ONE (10:00)
--- NOTE | 2017-02-12 10:06 | NUR ---
One time order for Valium Social Work Specialist received order for administration of Valium x1. Pt is agitated, irritable and demanding. Pt with an angry affect and anxious mood. Social Work Specialist administered per order and pt tolerated well. Will continue to monitor, support and encourage according to plan of care.
[2017-02-12 10:11] LABS: HEPATITIS B SURFACE AG Negative (Negative)
--- NOTE | 2017-02-12 11:06 | NUR ---
OT - Re-Assessment Pt endorses feeling more at ease. Pt is calmer and easier to approach. Will continue to moniotr, support and encourage according to plan of care.
[2017-02-12 12:53] VITALS: BP 106/67
[2017-02-12] MEDS ORDERED: DIAZEPAM 10 MG TABLET PO SCH (13:00)
--- NOTE | 2017-02-12 14:03 | NUR ---
Therapist prompted client about group times. Client stated he does not want to go today because he does not feel well.
--- NOTE | 2017-02-12 15:12 | NUR ---
PRN Administration Pt approached travel writer with complaint of mouth and tooth pain rated at 6/10. Pt requested medication and travel writer administered per order. Pt tolerated well. Will continue to monitor, support and encourage according to plan of care.
[2017-02-12] MEDS ORDERED: DIAZEPAM 10 MG TABLET PO PRN ×2 (15:15)
[2017-02-12] MEDS ORDERED: DIAZEPAM 5 MG TABLET PO PRN (15:15)
[2017-02-12] MEDS ORDERED: LIDOCAINE VISCUS 2% 15 ML UDC MM PRN (15:30)
--- NOTE | 2017-02-12 16:15 | NUR ---
PRN Re-Assessment Pt states, " It still hurts, but I feel a bit better." Pt with no further complaints at this time. Will continue to monitor, support and encourage according to plan of care.
[2017-02-12 16:50] VITALS: BP 112/74
--- NOTE | 2017-02-12 18:05 | NUR ---
Scheduled Subutex and Valium held Pt somnolent and resting with eyes closed. Pt does answer assessment questions appropriately, but quickly drifts in and out. Pt reports mild detox symptoms and makes no immediate requests and falls back a sleep. Respirations, even and unlabored with rise and fall of chest noted. Testing Projects Administrator made Dr. Garvey aware of need to hold doses due to sedation. Will continue to monitor, support and encourage according to plan of care.
--- NOTE | 2017-02-12 19:19 | NUR ---
End of Shift Rn Ante Partum provided report to oncoming shift with no further, comments, questions or concerns voiced. Pt is a 21 year old male admitted on 02/11/17 for poly-substance detoxification. Pt has NKA, full code and has a regular diet. Pt is on a Valium and Subutex taper. Pts 1700 Subutex and Valium were not administered d/t sedation, MD aware. Pt was able to answer writers assessment questions and described the mild symptoms he was feeling, but then drifts off to sleep. Pt COWS of 8 and CIWA of 8 were last recorded at 1830 Pt was administered an additional OT order of Valium this am as well, which was effective. Pt currently resting with eyes closed, respirations even and unlabored, rise and fall of chest noted. Bed in low position, wheels locked, side rails up x2 and call light within reach. All safety measures in place according to hospital policy.
--- NOTE | 2017-02-12 19:30 | NUR ---
START OF SHIFT Pt is a 21 year old male admitted for Opioid/Meth/ETOH/Benzo dependence. Pt reported PMH of anxiety, seizure, insomnia. Continues on Valium and Subutex tapers as ordered with no A/R noted.Pt is A/O X 4.On fall and sz precautions.Breathing normal no SOB noted, Skin intact warm and dry tot touch. Safety measures in place. Call light kept within reach. Will cont to monitor.
[2017-02-12 20:00] VITALS: BP 114/72
[2017-02-12] MEDS: QUETIAPINE FUMARATE 100 MG TABLET PO SCH (20:45)
[2017-02-12] MEDS: METHOCARBAMOL 750 MG TABLET PO PRN (21:20)
--- NOTE | 2017-02-12 21:20 | NUR ---
PRN MED PRN ROBAXIN GIVEN ORDERED FOR C/O MYALGIA.WILL MONITOR.
--- NOTE | 2017-02-12 22:50 | NUR ---
PRN EFFECTIVE.PT STATED FEELING BETTER.
[2017-02-13] VITALS: BP 114/58
[2017-02-13 04:00] VITALS: BP 121/55
--- NOTE | 2017-02-13 06:38 | NUR ---
END OF SHIFT Pt is a 21 year old male admitted for Opioid/Meth/ETOH/Benzo dependence. Pt reported PMH of anxiety, seizure, insomnia. Continues on Valium and Subutex tapers as ordered with no A/R noted.Pt is A/O X 4.On fall and sz precautions.Breathing normal no SOB noted, Skin intact warm and dry to touch.Last COWS=3/CIWA CIWA=2. Pt was given Robaxin for c/o myalgia and was effective.Pt slept 8 hrs,fluid intake was 1092 mls,voided x 2.All safety measures in place, Call light kept within reach. Will cont to monitor.
--- NOTE | 2017-02-13 07:10 | NUR ---
Start Of Shift Patient Received from awake overnight monitor nurse. Pt is a 21 year old male admitted for Opioid/Meth/ETOH/Benzo dependence, under the care of Dr. Garvey. Pt is full code regular diet on fall and seizure precautions denies any food or drug allergies. Pt reported PMH of anxiety, seizure, and insomnia. Pt continues on 5 day Valium and 5 day Subutex tapers. Treatment plan tolerated well by the patient as evidenced by pt's last CIWA score of 2 and COWS score of 3 which was taken at 0400. Pt received PRN Robaxin for c/o myalgia medications was effective per awake overnight monitor nurse. Pt slept 8hrs. Pt is currently in his room laying in bed watching TV. All safety measures in place per hospital policy. Bed in lowest position, side rails up x2, call-light within reach. Will continue to monitor and provide support.
[2017-02-13 08:00] VITALS: BP 122/65
[2017-02-13] MEDS: FOLIC ACID 1 MG TABLET PO SCH (08:48)
[2017-02-13] MEDS: DOCUSATE SODIUM 250 MG CAPSULE PO SCH (08:48)
[2017-02-13] MEDS: GABAPENTIN 400 MG CAPSULE PO SCH ×3 (08:48→21:10)
[2017-02-13] MEDS: MULTIVITAMINS,THERAPEUTIC TABLET PO SCH (08:48)
[2017-02-13] MEDS: MAGNESIUM CHLORIDE 64 MG TABLET.SA PO SCH ×2 (08:48→21:11)
[2017-02-13] MEDS: BUPRENORPHINE HCL 2 MG TAB.SUBL SL SCH ×3 (08:49→21:11)
[2017-02-13] MEDS: DIAZEPAM 10 MG TABLET PO SCH ×3 (08:49→21:10)
[2017-02-13] MEDS: THIAMINE HCL 100 MG TABLET PO SCH (08:49)
[2017-02-13 12:00] VITALS: BP 116/66
--- NOTE | 2017-02-13 13:55 | NUR ---
Therapist prompted client about group times. Client stated he will attend all groups today.
[2017-02-13 16:00] VITALS: BP 117/63
--- NOTE | 2017-02-13 19:11 | NUR ---
End Of Shift Report given. Pt is a 21 year old male admitted for Opioid/Meth/ETOH/Benzo dependence, under the care of Dr. Garvey. Pt is full code regular diet on fall and seizure precautions denies any food or drug allergies. Pt reported PMH of anxiety, seizure, and insomnia. Pt continues on 5 day Valium and 5 day Subutex tapers. VS monitored closely q 4 hours. Withdrawal symptoms were closely monitored. Initial CIWA 6 COWS 6. Patient encouraged adequate PO fluid intake as tolerated. Patient presented with sweats and anxiety during the day. Last CIWA 4 COWS 3. Per patient, Valium and Subutex have been helping him with his withdrawal symptoms. Pt ate all of his meals. Pt did not receive any PRN medications. Patient encouraged to attend group therapies/sessions to learn new coping skills to recent relapse, patient denies SI/HI. Participated in group and therapy sessions. All needs met and attended.
[2017-02-13 20:00] VITALS: BP 127/72
--- NOTE | 2017-02-13 20:00 | NUR ---
START OF SHIFT NOTE PATIENT ALERT AND ORIENTED X 4. RESPIRATION EVEN AND UNLABORED. PATIENT REPORTS ANXIETY, SWEATING, BACK PAIN 6/10, STUFFY NOSE, SNIFFLES, NO N/V, TREMORS, NO ABDOMINAL CRAMPING AND NOTED YAWNING. RECEIVED REPORT FROM DAY SHIFT NURSE. PATIENT IS A 21 YEAR OLD MALE ADMITTED FOR ETOH/BENZO/OPIATE/METH DEPENDENCE. PATIENT IS ON 5 DAY VALIUM AND 5 DAY SUBUTEX TAPER. PATIENT'S DRUG OF CHOICE ARE HEROIN , XANAX, ETOH (VODKA), VALIUM . METH AND PHENOBARBITAL. PATIENT REPORTS PMH OF ANXIETY , INSOMNIA AND SEIZURE , LAST ONE WAS A MONTH AGO. SKIN INTACT. PATIENT DID NOT REQUIRE ANY PRN MEDICATION. LAST CIWA 4 AND COWS 3. ON FALL/SEIZURE PRECAUTION. SAFETY MEASURES IN PLACE. CALL LIGHT IN REACH. WILL CONTINUE TO MONITOR.
[2017-02-13] MEDS: QUETIAPINE FUMARATE 100 MG TABLET PO SCH (21:10)
[2017-02-13] MEDS: CLONIDINE HCL 0.1 MG TABLET PO PRN (22:35)
--- NOTE | 2017-02-13 22:35 | NUR ---
PRN CATAPRES ADMINISTRATION PATIENT C/O ANXIETY, RESTLESSNESS AND SWEATING. PRN CATAPRES GIVEN. WILL MONITOR FOR EFFECTIVENESS
--- NOTE | 2017-02-13 23:35 | NUR ---
PRN CATAPRES RE-ASSESSMENT PATIENT ASLEEP AT THIS TIME. NO S/S OF DISTRESS. WILL CONTINUE TO MONITOR
[2017-02-14] VITALS (7 sets, daily range): BP systolic 90–128; BP diastolic 45–69
--- NOTE | 2017-02-14 04:00 | NUR ---
COWS/CIWA/VS PATIENT REFUSED TO BE WOKEN UP. COWS/CIWA UNABLE TO ASSESS. RESPIRATION EVEN AND UNLABORED. RR 15. WILL CONTINUE TO MONITOR
--- NOTE | 2017-02-14 07:19 | NUR ---
END OF SHIFT NOTE PATIENT REMAIN ALERT AND ORIENTED X 4. RESPIRATION EVEN AND UNLABORED. PATIENT REPORTED ANXIETY, SWEATING, BACK PAIN 6/10, STUFFY NOSE, SNIFFLES, NO N/V, TREMORS, NO ABDOMINAL CRAMPING AND NOTED YAWNING BEGINNING OF SHIFT. PATIENT IS A 21 YEAR OLD MALE ADMITTED FOR ETOH/BENZO/OPIATE/METH DEPENDENCE. PATIENT IS ON 5 DAY VALIUM AND 5 DAY SUBUTEX TAPER, TOLERATED WELL AND NO ADVERSE REACTION. PATIENT'S DRUG OF CHOICE ARE HEROIN , XANAX, ETOH (VODKA), VALIUM . METH AND PHENOBARBITAL. PATIENT REPORTS PMH OF ANXIETY , INSOMNIA AND SEIZURE , LAST ONE WAS A MONTH AGO. SKIN INTACT. PATIENT WAS GIVEN PRN CATAPRES. PATIENT COMPLIANT WITH MEDICATIONS AND TREATMENT PLAN. ON FALL/SEIZURE PRECAUTION. SAFETY MEASURES IN PLACE. CALL LIGHT IN REACH. WILL CONTINUE TO MONITOR. SLEPT 7 HOURS. FLUID INTAKE 582 ML. VOIDED X 2. NO BM. LAST COWS 3 AND CIWA 2 .
--- NOTE | 2017-02-14 07:30 | NUR ---
START OF SHIFT Pt 21 y/o male admitted for etoh/ benzo/ heroin/ methamphetamine. Pt received in room with eyes closed resting, but easily arousable to name. Pt alert and oriented to name, place, and time. Perrla. Skin warm and slightly moist to touch. Respirations even and unlabored. It was reported that pt slept for 7 hours last night. Bed on lowest position with side rails x2 up for safety. Call light within reach. No distress noted at this time.
[2017-02-14] MEDS: MAGNESIUM CHLORIDE 64 MG TABLET.SA PO SCH ×2 (08:39→21:10)
[2017-02-14] MEDS: DIAZEPAM 5 MG TABLET PO SCH ×4 (08:40→21:11)
[2017-02-14] MEDS: FOLIC ACID 1 MG TABLET PO SCH (08:40)
[2017-02-14] MEDS: GABAPENTIN 400 MG CAPSULE PO SCH ×3 (08:40→21:10)
[2017-02-14] MEDS: THIAMINE HCL 100 MG TABLET PO SCH (08:40)
[2017-02-14] MEDS: MULTIVITAMINS,THERAPEUTIC TABLET PO SCH (08:40)
[2017-02-14] MEDS: DOCUSATE SODIUM 250 MG CAPSULE PO SCH (08:40)
[2017-02-14] MEDS: CLONIDINE HCL 0.1 MG TABLET PO PRN (08:49)
--- NOTE | 2017-02-14 08:50 | NUR ---
PRN Pt with c/o anxiety. Catapres po prn per MD order given and tolerated well.
[2017-02-14] MEDS ORDERED: BUPRENORPHINE HCL 2 MG TAB.SUBL SL SCH (09:00)
--- NOTE | 2017-02-14 09:50 | NUR ---
SHARON Pt observed sitting in dining room. No distress noted at this time Addendum: 02/14/17 at 1328 by AMERICO MCDUFFIE RN SHARON RAMIREZ
[2017-02-14] MEDS: QUETIAPINE FUMARATE 25 MG TABLET PO SCH (10:43)
--- NOTE | 2017-02-14 11:18 | NUR ---
Clinician encouraged client to attend the 3:30 group today. Client said that he would.
[2017-02-14] MEDS: BUPRENORPHINE HCL 2 MG TAB.SUBL SL SCH ×2 (14:14→21:10)
--- NOTE | 2017-02-14 14:27 | NUR ---
Therapist encouraged client to attend the 11am group therapy session. Client did not state if he would attend or not.
--- NOTE | 2017-02-14 15:09 | NUR ---
Clinician encouraged the client to attend the 3:30 group. Client did not say if he would or would not attend.
[2017-02-14] MEDS: METHOCARBAMOL 750 MG TABLET PO PRN (17:04)
--- NOTE | 2017-02-14 17:04 | NUR ---
PRN Pt with c/o generalize body aches. Robaxin po prn per MD order given and tolerated well.
--- NOTE | 2017-02-14 18:04 | NUR ---
SHARON RAMIREZ Pt observed walking around hallway and with no c/o pain.
--- NOTE | 2017-02-14 18:20 | NUR ---
END OF SHIFT Pt 21 y/o male admitted for etoh/ benzo/ heroin/ methamphetamine. Pt alert and oriented to name, place, and time. Perrla. Skin warm and moist to touch. Respirations even and unlabored. Bilateral hand tremors noted. Pt observed mostly in dining room throughout the day. Pt did attend group activity today. PT was seen by MD today. Pt medication compliant and tolerated well. No ASE noted. Bed on lowest position with side rails x2 up for safety. Call light within reach. No distress noted at this time.
--- NOTE | 2017-02-14 20:00 | NUR ---
START OF SHIFT NOTE RECEIVED REPORT FROM DAY SHIFT NURSE.PATIENT IS A 21 YEAR OLD MALE, ADMITTED FOR ETOH/BENZO/HEROIN/METH DEPENDENCE. PATIENT IS ON 5 DAY AND 5 DAY SUBUTEX TAPER. PATIENT'S DRUG OF CHOICE OF HEROIN, XANAX,ETOH (VODKA), VALIUM , METH AND PHENOBARBITAL. PATIENT REPORTS SEIZURE HISTORY, LAST ONE WAS A MONTH AGO. ON FALL/SEIZURE PRECAUTION. SKIN INTACT. PATIENT WAS GIVEN PRN ROBAXIN AND CATAPRES . LAST COWS 2 AND CIWA 2. SAFETY MEASURES IN PLACE. CALL LIGHT IN REACH. WILL CONTINUE TO MONITOR
[2017-02-14] MEDS: QUETIAPINE FUMARATE 100 MG TABLET PO SCH (21:10)
[2017-02-15] VITALS: BP 104/50
[2017-02-15 04:00] VITALS: BP 96/50
--- NOTE | 2017-02-15 07:09 | NUR ---
START OF SHIFT NOTE MONITORED PATIENT THROUGHOUT SHIFT. PATIENT COMPLIANT MEDICATION AND TREATMENT PLAN. PATIENT IS A 21 YEAR OLD MALE, ADMITTED FOR ETOH/BENZO/HEROIN/METH DEPENDENCE. PATIENT IS ON 5 DAY AND 5 DAY SUBUTEX TAPER. ON FALL/SEIZURE PRECAUTION. SKIN INTACT. PATIENT DID NOT RECEIVE ANY PRN MEDICATION. SAFETY MEASURES IN PLACE. CALL LIGHT IN REACH. WILL CONTINUE TO MONITOR. SLEPT 7 HOURS. FLUID INTAKE 1,100 ML. VOIDED X 2 . NO BM. LAST COWS 2 AND AND CIWA 1. Addendum: 02/15/17 at 0710 by JH RICHMOND LVN END OF SHIFT NOTE
--- NOTE | 2017-02-15 07:43 | NUR ---
START OF SHIFT Pt 21 y/o male admitted for etoh/ benzo/ heroin/ methamphetamine. Pt received in room on bed awake watching television. Pt alert and oriented to name, place, and time. Perrla. Skin warm and slightly moist to touch. Respirations even and unlabored. It was reported that pt slept for 7 hours last night. Bed on lowest position with side rails x2 up for safety. Call light within reach. No distress noted at this time.
[2017-02-15 08:38] VITALS: BP 114/71
[2017-02-15] MEDS: BUPRENORPHINE HCL 2 MG TAB.SUBL SL SCH ×3 (08:55→20:47)
[2017-02-15] MEDS: MAGNESIUM CHLORIDE 64 MG TABLET.SA PO SCH ×2 (08:55→20:46)
[2017-02-15] MEDS: FOLIC ACID 1 MG TABLET PO SCH (08:55)
[2017-02-15] MEDS: MULTIVITAMINS,THERAPEUTIC TABLET PO SCH (08:55)
[2017-02-15] MEDS: QUETIAPINE FUMARATE 25 MG TABLET PO SCH (08:55)
[2017-02-15] MEDS: METHOCARBAMOL 750 MG TABLET PO PRN (08:55)
[2017-02-15] MEDS: DIAZEPAM 5 MG TABLET PO SCH ×3 (08:55→20:46)
[2017-02-15] MEDS: CLONIDINE HCL 0.1 MG TABLET PO PRN (08:55)
[2017-02-15] MEDS: THIAMINE HCL 100 MG TABLET PO SCH (08:55)
--- NOTE | 2017-02-15 08:55 | NUR ---
PRN Pt states feels anxious. Catapres po prn per MD order given and tolerated well.
--- NOTE | 2017-02-15 08:55 | NUR ---
PRN Pt states has generalized body aches 6/10. Robaxin po prn per MD order given and tolerated well.
[2017-02-15] MEDS: GABAPENTIN 400 MG CAPSULE PO SCH ×3 (08:56→20:46)
[2017-02-15] MEDS: DOCUSATE SODIUM 250 MG CAPSULE PO SCH (08:56)
--- NOTE | 2017-02-15 09:55 | NUR ---
PRN EVAL Pt observed walking around unit. Pt states catapres was effective.
--- NOTE | 2017-02-15 09:55 | NUR ---
PRN ASHLEY Pt observed walking around unit.
[2017-02-15 13:33] VITALS: BP 99/51
[2017-02-15] MEDS: BACLOFEN 20 MG TABLET PO PRN (14:04)
--- NOTE | 2017-02-15 14:04 | NUR ---
PRN Pt states has body aches 6/10. Baclofen po prn per MD order given and tolerated well.
--- NOTE | 2017-02-15 15:04 | NUR ---
PRN EVAL Pt observed in patio walking around.
[2017-02-15 16:00] VITALS: BP 102/65
--- NOTE | 2017-02-15 18:26 | NUR ---
END OF SHIFT Pt 21 y/o male admitted for etoh/ benzo/ heroin/ methamphetamine. Pt alert and oriented to name, place, and time. Perrla. Skin warm and moist to touch. Respirations even and unlabored. Bilateral hand tremors noted. Pt observed mostly in dining room throughout the day. Pt attended group activity today. Pt was seen by Dr. Garvey today. Pt medication compliant and tolerated well. No ASE noted. Bed on lowest position with side rails x2 up for safety. Call light within reach. No distress noted at this time.
--- NOTE | 2017-02-15 19:15 | NUR ---
Start of Shift Patient Received. Patient is in activities room participating in a group meeting. Patient is a 21 year old male admitted on 02/11/17 for ETOH, Benzo, and Opiate Dependence under the care of Dr. Garvey. Patient is currently receiving a 5 day Ativan and 5 day Subutex taper. Patient verbalizes no known allergies, wishes to be full code, placed on fall and seizure precautions, and skin noted intact. Patients past medical history noted as Anxiety, history of seizures with last one noted a month ago due to Benzo withdrawal, and insomnia. Per endorsement, patient was given PRN Clonidine, Robaxin, and Baclofen with medication noted to be effective. Patients last CIWA noted to be 2 and COWS noted to be 2. All needs attended to promptly. Will continue plan of care as ordered.
[2017-02-15 20:44] VITALS: BP 134/72
[2017-02-15] MEDS: QUETIAPINE FUMARATE 100 MG TABLET PO SCH (20:46)
[2017-02-16 00:15] VITALS: BP 121/62
[2017-02-16 04:00] VITALS: BP 126/69
--- NOTE | 2017-02-16 07:07 | NUR ---
End of Shift Patient is in bed sleeping. Breathing even and non labored. No signs of pain or discomfort noted. Patient is a 21 year old male admitted on 02/11/17 for ETOH, Benzo, and Opiate Dependence and continues on 5 day Ativan and 5 day Subutex tapers. No PRN medications administered. Patient noted to sleep a total of 6 hours. All needs attended to promptly. Will endorse to continue plan of care as ordered
--- NOTE | 2017-02-16 07:43 | NUR ---
START OF SHIFT Pt 21 y/o male admitted for etoh/ benzo/ heroin/ methamphetamine. Pt received in room on bed with eyes closed resting, but easily arousable to name. Pt alert and oriented to name, place, and time. Perrla. Skin warm and slightly moist to touch. Respirations even and unlabored. It was reported that pt slept for 6 hours last night. Bed on lowest position with side rails x2 up for safety. Call light within reach. No distress noted at this time.
[2017-02-16 08:29] VITALS: BP 120/63
[2017-02-16] MEDS: MAGNESIUM CHLORIDE 64 MG TABLET.SA PO SCH ×2 (08:38→20:04)
[2017-02-16] MEDS: DOCUSATE SODIUM 250 MG CAPSULE PO SCH (08:38)
[2017-02-16] MEDS: QUETIAPINE FUMARATE 25 MG TABLET PO SCH (08:38)
[2017-02-16] MEDS: GABAPENTIN 400 MG CAPSULE PO SCH ×3 (08:39→20:04)
[2017-02-16] MEDS: FOLIC ACID 1 MG TABLET PO SCH (08:39)
[2017-02-16] MEDS: THIAMINE HCL 100 MG TABLET PO SCH (08:39)
[2017-02-16] MEDS: CLONIDINE HCL 0.1 MG TABLET PO PRN ×2 (08:39→14:22)
[2017-02-16] MEDS: MULTIVITAMINS,THERAPEUTIC TABLET PO SCH (08:39)
[2017-02-16] MEDS: DIAZEPAM 5 MG TABLET PO SCH ×2 (08:39→20:04)
[2017-02-16] MEDS: BACLOFEN 20 MG TABLET PO PRN (08:39)
--- NOTE | 2017-02-16 08:39 | NUR ---
PRN Pt states feels anxious. Catapres po prn per MD order given and tolerated well.
--- NOTE | 2017-02-16 08:39 | NUR ---
PRN Pt states has body aches 6/10. Baclofen po prn per MD order given and tolerated well.
[2017-02-16] MEDS ORDERED: BUPRENORPHINE HCL 2 MG TAB.SUBL SL SCH (09:00)
--- NOTE | 2017-02-16 09:39 | NUR ---
SHARON RAMIREZ Pt observed walking around in the patio. No distress noted at this time.
--- NOTE | 2017-02-16 09:39 | NUR ---
PRN ASHLEY Pt states pain 08/17.
[2017-02-16 13:23] VITALS: BP 106/69
[2017-02-16] MEDS: METHOCARBAMOL 750 MG TABLET PO PRN (14:22)
--- NOTE | 2017-02-16 14:22 | NUR ---
PRN Pt states has body aches 6/10. Robaxin po prn per MD order given and tolerated well.
--- NOTE | 2017-02-16 14:22 | NUR ---
PRN Pt states feels anxious. Catapres po prn per MD order given and tolerated well.
--- NOTE | 2017-02-16 15:22 | NUR ---
SHARON RAMIREZ Pt observed in room on bed with eyes closed resting, but easily arousable to name. No distress noted at this time.
--- NOTE | 2017-02-16 15:22 | NUR ---
PRN ASHLEY Pt states pain 08/17.
[2017-02-16 17:15] VITALS: BP 95/59
--- NOTE | 2017-02-16 18:20 | NUR ---
END OF SHIFT Pt 21 y/o male admitted for etoh/ benzo/ heroin/ methamphetamine. Pt alert and oriented to name, place, and time. Perrla. Skin warm and moist to touch. Respirations even and unlabored. Bilateral hand tremors noted. Pt observed mostly in dining room throughout the day. Pt attended group activity today. Pt was seen by MD today. Pt medication compliant and tolerated well. No ASE noted. Bed on lowest position with side rails x2 up for safety. Call light within reach. No distress noted at this time.
--- NOTE | 2017-02-16 19:15 | NUR ---
Start of Shift Patient Received. Patient is in activities room participating in a group meeting. Patient is a 21 year old male admitted on 02/11/17 for ETOH, Benzo, and Opiate Dependence under the care of Dr. Garvey. Patient continues on 5 day Valium and has completed 5 day Subutex. No known allergies, wishes to be full code, placed on fall and seizure precautions, and skin noted intact. Patients past medical history noted as Anxiety, history of seizures with last one noted a month ago due to Benzo withdrawal, and insomnia. Per endorsement, patient was given PRN Clonidine, Robaxin, and Baclofen with medication noted to be effective. Patients last CIWA noted to be 2 and COWS noted to be 2. All needs attended to promptly. Will continue plan of care as ordered.
[2017-02-16 20:02] VITALS: BP 116/68
[2017-02-16] MEDS: QUETIAPINE FUMARATE 100 MG TABLET PO SCH (20:04)
[2017-02-17 00:14] VITALS: BP 111/59
[2017-02-17 04:00] VITALS: BP 109/63
--- NOTE | 2017-02-17 07:18 | NUR ---
End of Shift Patient is in bed sleeping. Breathing even and non labored. No signs of pain or discomfort noted. Patient is a 21 year old male admitted on 02/11/17 for ETOH, Benzo, and Opiate Dependence and continues on 5 day Ativan and has completed a 5 day Subutex taper. No PRN medications administered. Patient noted to sleep a total of 6 hours. All needs attended to promptly. Will endorse to continue plan of care as ordered.
--- NOTE | 2017-02-17 08:00 | NUR ---
START OF SHIFT Rcvd endorsement from ongoing nurse, client is in room, her sound asleep, easy to arouse, RR 16 even, non-labored. Client is a 21 yo male admitted for withdrawal from alcohol, benzodiazepine and opiates. He completed a 5 day Subutex, 5 day Valium, tolerated well. Last CIWA 2 @ 0400. Client has NKA, full code, regular diet. Client was on room restrictions last night d/t behavioral issues. Client slept 6 hrs. Client reports a history of withdrawal-induced seizure (01/2017). He is on seizure precautions. Call light within reach. Side rails up x2/padded, bed locked and in low position
[2017-02-17 09:28] VITALS: BP 131/79
[2017-02-17] MEDS: MULTIVITAMINS,THERAPEUTIC TABLET PO SCH (09:40)
[2017-02-17] MEDS: THIAMINE HCL 100 MG TABLET PO SCH (09:40)
[2017-02-17] MEDS: MAGNESIUM CHLORIDE 64 MG TABLET.SA PO SCH ×2 (09:40→20:45)
[2017-02-17] MEDS: GABAPENTIN 400 MG CAPSULE PO SCH ×3 (09:40→20:45)
[2017-02-17] MEDS: QUETIAPINE FUMARATE 25 MG TABLET PO SCH (09:40)
[2017-02-17] MEDS: FOLIC ACID 1 MG TABLET PO SCH (09:40)
[2017-02-17] MEDS: CLONIDINE HCL 0.1 MG TABLET PO PRN ×2 (10:16→22:00)
--- NOTE | 2017-02-17 10:16 | NUR ---
PRN Clonidine 0.1mg for anxiety, irritability, MB pacing in his room. Call light within reach.
--- NOTE | 2017-02-17 11:16 | NUR ---
Reassessment PRN Clonidine 0.1mg effective, client appears relaxed and is watching TV and eating an ice cream. Call light within reach.
[2017-02-17 12:00] VITALS: BP 114/64
[2017-02-17 13:21] LABS: *AMPHETAMINE, URINE NEGATIVE (NEGATIVE); *BARBITURATE, URINE POSITIVE (NEGATIVE); *CANNABINOID, URINE NEGATIVE (NEGATIVE); *COCCAINE, URINE NEGATIVE (NEGATIVE); *OPIATE, URINE NEGATIVE (NEGATIVE); *PHENCYCLIDINE SCREEN,URINE NEGATIVE (NEGATIVE)
[2017-02-17 16:00] VITALS: BP 115/65
--- NOTE | 2017-02-17 19:15 | NUR ---
END OF SHIFT Client is in room, a/o x4, he presents with anxious mood, flat affect. Client is a 21 yo male admitted for withdrawal from alcohol, benzodiazepine and opiates. He completed a 5 day Subutex, 5 day Valium, tolerated well. Last CIWA 2/COWS 4 @ 1600. Client has NKA, full code, regular diet. Client was removed from room restrictions. PRN Clonidine 0.1mg for anxiety, noted effective. Client reports a history of withdrawal-induced seizure (01/2017). He is on seizure precautions. Call light within reach. Side rails up x2/padded, bed locked and in low position
--- NOTE | 2017-02-17 19:15 | NUR ---
Start of Shift Patient Received. Patient is in activities room participating in a group meeting. Patient is a 21 year old male admitted on 02/11/17 for ETOH, Benzo, and Opiate Dependence under the care of Dr. Garvey. Patient has completed a 5 day Valium and 5 day Subutex taper. Patient verbalizes no known allergies, wishes to be full code, placed on fall and seizure precautions, and skin noted intact. Patients past medical history noted as Anxiety, history of seizures with last one noted a month ago due to Benzo withdrawal, and insomnia. Per endorsement, patient was given PRN Clonidine with medication noted to be effective. Patient is set for discharge tomorrow 02/18/17. All needs attended to promptly. Will continue plan of care as ordered.
[2017-02-17 20:33] VITALS: BP_SYST 120; BP_DIAS 56; BP_DIAS 61
[2017-02-17] MEDS: QUETIAPINE FUMARATE 100 MG TABLET PO SCH (20:46)
[2017-02-17] MEDS ORDERED: QUET25TA PO (21:39)
[2017-02-17] MEDS ORDERED: DICY20TA28 PO (21:39)
[2017-02-17] MEDS ORDERED: BACL20TA PO (21:39)
[2017-02-17] MEDS ORDERED: IBUP-1955 PO (21:39)
[2017-02-17] MEDS ORDERED: HYDR-3895 PO (21:39)
[2017-02-17] MEDS ORDERED: GABA-536 PO (21:39)
--- NOTE | 2017-02-17 22:00 | NUR ---
PRN Medication Administration Patient verbalizing increased anxiety due to set discharge tomorrow 02/18/17. PRN Clonidine administered as per order. Will continue to monitor for effectiveness.
--- NOTE | 2017-02-17 23:00 | NUR ---
PRN Medication administration Patient is noted in bed sleeping. Breathing even and non labored. No signs of pain or discomfort noted. PRN Clonidine noted to be effective. Patient continues to sleep well with no complications noted. Will continue to monitor. Addendum: 02/18/17 at 0139 by MARA GUIDO LVN PRN Medication Reassessment [id number]
[2017-02-18 00:46] VITALS: BP 101/59
[2017-02-18 04:00] VITALS: BP 103/64
--- NOTE | 2017-02-18 07:20 | NUR ---
End of Shift Patient is in bed sleeping. Breathing even and non labored. No signs of pain or discomfort noted. Patient is a 21 year old male admitted on 02/11/17 for ETOH, Benzo, and Opiate Dependence and has completed a 5 day Ativan and 5 day Subutex taper. Patient was given PRN Clonidine for increased anxiety. Patient is set for discharge today 02/18/17. Patient noted to sleep a total of 7 hours. All needs attended to promptly. Will endorse to continue plan of care as ordered.
--- NOTE | 2017-02-18 07:30 | NUR ---
START OF SHIFT Received report from night nurse, 21 year old male patient admitted on 02/11/17 for opiate, benzo. ETOH and methamphetamine dependence. Pt has completed ordered Valium and Subutex taper and is medically cleared for discharge. Pt reports history of anxiety and insomnia. Pt received PRN Clonidine at night, slept for 7 hours. V/S remain WNL. COWS 3 and CIWA 2. No acute distress or discomfort noted. Pt states he is ready for discharge. All needs met at this time. Will continue to monitor.
[2017-02-18 08:00] VITALS: BP 103/64
[2017-02-18] MEDS: MAGNESIUM CHLORIDE 64 MG TABLET.SA PO SCH (08:42)
[2017-02-18] MEDS: MULTIVITAMINS,THERAPEUTIC TABLET PO SCH (08:43)
[2017-02-18] MEDS: GABAPENTIN 400 MG CAPSULE PO SCH (08:43)
[2017-02-18] MEDS: THIAMINE HCL 100 MG TABLET PO SCH (08:43)
[2017-02-18] MEDS: FOLIC ACID 1 MG TABLET PO SCH (08:43)
[2017-02-18] MEDS: QUETIAPINE FUMARATE 25 MG TABLET PO SCH (08:43)
--- NOTE | 2017-02-18 09:39 | NUR ---
D/C NOTE Pt is A/O x4. V/S remain WNL. Pt denies SI/HI or hallucinations. Pt shows no s/s of acute withdrawal at this time, and is stable. has medically cleared pt for d/c . Education on Hepatitis C, smoking cessation and medication side effects provided. Pt verbalizes understanding. All pt belongings are in belonging bag, including prescriptions, pt did not have any home medications. Refuses PNU vaccination. Pt is being accompanied by GUIDE VISITOR at this time to be transported to rehab. All needs met.
[2017-02-18 09:44] VITALS: BP 108/65
== END 2017-02-18 09:39 | disposition home or self-care (01) | DRG 895 ==
LOC: SRC 11:31
PROVIDERS: ADMIT Internal Medicine; ATTEND Internal Medicine
PROC: HZ2ZZZZ Detoxification Services for Substance Abuse Treatment (ICD-10-PCS; principal; 2017-02-11)
PROC: HZ31ZZZ Individual Counseling for Substance Abuse Treatment, Behavioral (ICD-10-PCS; 2017-02-12)
PROC: HZ41ZZZ Group Counseling for Substance Abuse Treatment, Behavioral (ICD-10-PCS; 2017-02-13)
DX: F10.230 Alcohol dependence with withdrawal, uncomplicated (principal); F15.20 Other stimulant dependence, uncomplicated; F13.230 Sedative, hypnotic or anxiolytic dependence with withdrawal, uncomplicated; F11.23 Opioid dependence with withdrawal; Y90.9 Presence of alcohol in blood, level not specified; Z59.0 Homelessness; G47.00 Insomnia, unspecified; B19.20 Unspecified viral hepatitis C without hepatic coma; F41.9 Anxiety disorder, unspecified; F17.210 Nicotine dependence, cigarettes, uncomplicated; Z65.3 Problems related to other legal circumstances; F39 Unspecified mood [affective] disorder; Z81.8 Family history of other mental and behavioral disorders; D64.9 Anemia, unspecified; S61.401D Unspecified open wound of right hand, subsequent encounter; W34.00XD Accidental discharge from unspecified firearms or gun, subsequent encounter
CPT/HCPCS: 36415; 70030-TC; 80307; 80324; 80345; 80346; 80361; 83690; 83735; 85025; 86580; 86592; 86705; 86803; 87340; 87806; G0480; J3411